=== PATIENT | male | born 1960 | race Caucasian/White ===

== ENCOUNTER 2019-03-09 | Emergency (ER) | payer OTHER ==
[2019-03-09] MEDS ORDERED: ROCEPHIN1 G1 IJ (18:51)
[2019-03-09] MEDS ORDERED: BACTRIM DS1 TAB PO (18:51)
[2019-03-09] MEDS ORDERED: TAMSULOSIN0.4 MG PO (18:52)
[2019-03-09] MEDS ORDERED: DOXYCYCL HYC100 M2 IV (20:58)
[2019-03-09] MEDS ORDERED: PREDNISONE50 MG PO (20:58)
== END 2019-03-09 22:16 | DRG 607 ==
DX: R22.0 Localized swelling, mass and lump, head (principal); L03.90 Cellulitis, unspecified; L50.0 Allergic urticaria; T36.95XA Adverse effect of unspecified systemic antibiotic, initial encounter; T63.301D Toxic effect of unspecified spider venom, accidental (unintentional), subsequent encounter